=== PATIENT | female | born 1960 | race American Indian/Alaskan Native ===

== ENCOUNTER 2017-12-19 17:13 | Emergency (ER) | payer OTHER ==
[2017-12-19] MEDS ORDERED: Sodium Chloride 0.9% 10 ML Syringe FLUSH PRN (17:18)
[2017-12-19] MEDS ORDERED: Nitroglycerin 0.4 MG Tab.SL SL PRN (17:26)
[2017-12-19 18:04] LABS: CHLORIDE,CL 103 mmol/L (101-111); SODIUM,NA 136 mmol/L (135-145)
--- NOTE | 2017-12-19 19:20 | EDM.PDOC ---
Scribed by Kell Muhammad 12/19/171918 for Pierce Fontanez MD <Pierce Fontanez - Last Filed: 12/19/17 19:19> ED HPI GENERAL MEDICAL PROBLEM - General Chief Complaint: Chest Pain Stated Complaint: BY AMBULANCE Time Seen by Provider: 12/19/17 17:16 Source of Information: Reports: Patient, EMS, EMS Notes Reviewed, RN, RN Notes Reviewed History Limitations: Reports: No Limitations - History of Present Illness INITIAL COMMENTS - FREE TEXT/NARRATIVE: Patient arrives from [facility] by ambulance with complaint of chest pain x1 hour. She has been having some similar symptoms for the past couple of weeks and has been referred for cardiac cath on Tuesday. Patient received aspirin 324mg from the clinic and nitro 0.4mg sublingual from the Paramedics prior to arrival. She had partial relief from the 1 nitro. She states she has minimal chest discomfort. She admits to mild shortness of breath. Denies any edema or palpitations. Onset: Today Duration: Constant Location: Reports: Chest Quality: Reports: Ache Severity: Moderate Improves with: Reports: None Worsens with: Reports: None Associated Symptoms: Reports: No Other Symptoms Chest Pain Score (Numeric/FACES): 5 - Related Data Allergies Allergy/AdvReac Type Severity Reaction Status Date / Time lisinopril Allergy Mild Cough Verified 12/19/17 20:49 Home Meds: Home Meds Albuterol [Proventil HFA] 2 puff IH Q6HR PRN 11/29/17 [History] Amitriptyline [Elavil] 50 mg PO BEDTIME 11/29/17 [History] Hydrochlorothiazide [Hydrochlorothiazide] 25 mg PO DAILY 11/29/17 [History] Losartan [Cozaar] 100 mg PO DAILY 11/29/17 [History] Oxybutynin Chloride [Ditropan Xl] 10 mg PO DAILY 11/29/17 [History] Sennosides/Docusate Sodium [Senna-Docusate Sodium] 2 tab PO DAILY PRN 11/29/17 [ History] Aspirin 81 mg PO DAILY 12/19/17 [History] Fluticasone Propionate [Flonase] 1 spray NASBOTH DAILY PRN 12/19/17 [History] Ibuprofen [Advil] 200 mg PO Q6H PRN 12/19/17 [History] Past Medical History HEENT History: Reports: Allergic Rhinitis Cardiovascular History: Reports: Hypertension, Other (See Below) (chest pain.) Gastrointestinal History: Reports: Chronic Constipation, GERD Genitourinary History: Reports: Urinary Incontinence Musculoskeletal History: Reports: Back Pain, Chronic, Other (See Below) ( Restless legs.Degenerative of cervical intervertebral disc.. 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 ED EXAM, GENERAL - Physical Exam Exam: See Below Exam Limited By: No Limitations General Appearance: Alert, WD/WN, No Apparent Distress Eye Exam: Bilateral Eye: Normal Inspection Nose: Normal Inspection Throat/Mouth: Normal Inspection, Normal Lips, Normal Teeth, Normal Gums, Normal Oropharynx, Normal Voice, No Airway Compromise Head: Atraumatic, Normocephalic Neck: Normal Inspection, Supple, Non-Tender, Full Range of Motion Respiratory/Chest: No Respiratory Distress, Lungs Clear, Normal Breath Sounds, No Accessory Muscle Use, Chest Non-Tender Cardiovascular: Regular Rate, Rhythm, No Edema GI/Abdominal: Normal Bowel Sounds, Soft, Non-Tender, No Distention, No Abnormal Bruit (Female) Exam: Deferred Rectal (Female) Exam: Deferred Back Exam: Normal Inspection Extremities: Normal Inspection, Normal Range of Motion, Non-Tender, Normal Capillary Refill, No Pedal Edema Neurological: Alert, Oriented, CN II-XII Intact, Normal Cognition, Normal Gait, No Motor/Sensory Deficits Psychiatric: Normal Affect, Normal Mood Skin Exam: Warm, Dry, Intact, Normal Color, No Rash EKG INTERPRETATION EKG Date: 12/19/17 Time: 17:15 Rhythm: Other (sinus bradycardia) QRS: RBBB Comparison: No Change (Compared to EKG from 4:30PM at [facility] Course - Vital Signs Last Recorded V/S: Last Vital Signs Temp 97.9 F 12/19/17 20:15 Pulse 56 L 12/19/17 22:49 Resp 18 12/19/17 19:37 BP 106/53 L 12/19/17 22:49 Pulse Ox 97 12/19/17 22:00 - Orders/Labs/Meds Orders: Active Orders 24 hr Category Date Time Status EKG 12 Lead [EKG Documentation Completion] [RC] STAT Care 12/19/17 17:19 Active EKG Documentation Completion [RC] ONETIME Care 12/19/17 21:30 Active Peripheral IV Care [RC] . DIRECTED Care 12/19/17 17:20 Active Peripheral IV Insertion Adult [OM.PC] Stat Oth 12/19/17 17:19 Ordered Labs: Laboratory Tests 12/19/17 12/19/17 12/19/17 Range/Units 17:35 17:35 17:35 WBC 11.5 H (5.0-10.0) 10^3/uL RBC 4.67 (4.2-5.4) 10^6/uL Hgb 13.6 (12.0-16.0) g/dL Hct 41.2 (37.0-47.0) % MCV 88.2 (80-100) fL MCH 29.1 (27.0-34.0) pg MCHC 33.0 (33.0-35.0) g/dL Plt Count 223 (150-450) 10^3/uL Neut % (Auto) 73.0 (42.2-75.2) % Lymph % (Auto) 19.2 L (20.5-50.1) % Keith % (Auto) 6.4 (2-8) % Eos % (Auto) 1.1 (1.0-3.0) % Baso % (Auto) 0.3 (0.0-1.0) % PT 9.3 (9.0-12.0) SEC INR 0.9 (0.9-1.2) APTT 25.6 (22.0-34.0) SEC Sodium 136 (135-145) mmol/L Potassium 3.3 L (3.6-5.0) mmol/L Chloride 103 (101-111) mmol/L Carbon Dioxide 24.0 (21.0-31.0) mmol/L Anion Gap 12.3 BUN 17 (7-18) mg/dL Creatinine 0.6 (0.6-1.3) mg/dL Est Cr Clr Drug Dosing 93.09 mL/min Estimated GFR (MDRD) > 60 BUN/Creatinine Ratio 28.33 Glucose 92 (74-105) mg/dL Calcium 8.8 (8.4-10.2) mg/dl Total Bilirubin 1.0 (0.2-1.0) mg/dL AST 21 (10-42) IU/L ALT 20 (10-60) IU/L Alkaline Phosphatase 107 (42-121) IU/L Troponin I < 0.02 (0.00-0.02) ng/ml B-Natriuretic Peptide 72 (0-100) pg/ml Total Protein 7.0 (6.7-8.2) g/dl Albumin 3.9 (3.2-5.5) g/dl Globulin 3.1 Albumin/Globulin Ratio 1.26 03/12/18 Range/Units 22:04 WBC (5.0-10.0) 10^3/uL RBC (4.2-5.4) 10^6/uL Hgb (12.0-16.0) g/dL Hct (37.0-47.0) % MCV (80-100) fL MCH (27.0-34.0) pg MCHC (33.0-35.0) g/dL Plt Count (150-450) 10^3/uL Neut % (Auto) (42.2-75.2) % Lymph % (Auto) (20.5-50.1) % Keith % (Auto) (2-8) % Eos % (Auto) (1.0-3.0) % Baso % (Auto) (0.0-1.0) % PT (9.0-12.0) SEC INR (0.9-1.2) APTT (22.0-34.0) SEC Sodium (135-145) mmol/L Potassium (3.6-5.0) mmol/L Chloride (101-111) mmol/L Carbon Dioxide (21.0-31.0) mmol/L Anion Gap BUN (7-18) mg/dL Creatinine (0.6-1.3) mg/dL Est Cr Clr Drug Dosing mL/min Estimated GFR (MDRD) BUN/Creatinine Ratio Glucose (74-105) mg/dL Calcium (8.4-10.2) mg/dl Total Bilirubin (0.2-1.0) mg/dL AST (10-42) IU/L ALT (10-60) IU/L Alkaline Phosphatase (42-121) IU/L Troponin I < 0.02 (0.00-0.02) ng/ml B-Natriuretic Peptide (0-100) pg/ml Total Protein (6.7-8.2) g/dl Albumin (3.2-5.5) g/dl Globulin Albumin/Globulin Ratio Meds: Medications Discontinued Medications Generic Name Dose Route Start Last Admin Trade Name Freq PRN Reason Stop Dose Admin Nitroglycerin 0.4 mg 12/19/17 17:26 Nitrostat SL Q5M PRN Chest Pain Sodium Chloride 10 ml 12/19/17 17:18 Saline Flush FLUSH ASDIRECTED PRN Keep Vein Open - Radiology Interpretation Free Text/Narrative:: Chest x-ray: No acute findings. See rad report. - Re-Assessments/Exams Free Text/Narrative Re-Assessment/Exam: 12/19/17 18:34 Patient's initial enzymes negative and EKG with no acute ischemic changes. Patient will be moved to medical floor for repeat EKG and troponin at 2130 hours and care of patient transferred to Kriss Colvin at 1900 hour shift change. Departure - Departure Disposition: Home, Self-Care 01 Clinical Impression: Nonspecific chest pain Instructions: Nonspecific Chest Pain, [id number], Angina Pectoris, Easy-to- Read Referrals: PCP,Unobtain [Primary Care Provider] - Forms: ED Department Discharge Additional Instructions: Return to the ER with any worsening or further problems Follow up with your primary care facility <Kriss Colvin - Last Filed: 12/20/17 02:16> EKG INTERPRETATION EKG Interpretation Comments: No change in repeat EKG done at 2013 on 12/19/17 Course - Re-Assessments/Exams Free Text/Narrative Re-Assessment/Exam: 12/20/17 02:16 Care for the patient taken over from Dr. Fontanez. Recheck troponin negative and repeat EKG has no changes from previous EKG. Departure - Departure Time of Disposition: 22:38 Condition: Fair I have read and agree with the documentation that has been completed regarding this visit. By signing this record, I attest that the documentation was completed in my physical presence and is an accurate record of the encounter.
--- NOTE | 2017-12-21 09:27 | EKG ---
12/19/2017- JESSICA RAMON - TIME: 8:14 p.m. EKG per my reading shows sinus rhythm with right bundle branch block. [facility] /[id number]
--- NOTE | 2017-12-21 09:33 | EKG ---
12/19/2017- JESSICA RAMON - TIME: 05:15. EKG per my reading shows sinus rhythm at the rate of 50s with right bundle branch block. [facility] /[id number]
== END 2017-12-19 23:15 | disposition home or self-care (01) ==
LOC: EDBD → EDUNIT# → DL.ED 17:13
DX: R07.89 Other chest pain (principal); I10 Essential (primary) hypertension; F17.200 Nicotine dependence, unspecified, uncomplicated; Z88.8 Allergy status to other drugs, medicaments and biological substances; Z79.899 Other long term (current) drug therapy; Z79.82 Long term (current) use of aspirin
CPT/HCPCS: 36415; 71045; 80053; 83880; 84484; 85025; 85610; 85730; 93005; 99285

== ENCOUNTER 2023-10-24 05:56 | Day surgery (SDC) | payer BC, OTHER ==
[2023-10-24] MEDS ORDERED: Dextrose 5%-0.45% NaCl 1,000 ML IV SCH (06:00)
[2023-10-24] MEDS ORDERED: fentaNYL 100 MCG/2 ML SDV IV ONE ×6 (06:15→07:43)
[2023-10-24] MEDS ORDERED: fentaNYL 100 MCG/2 ML SDV ONE (06:15)
[2023-10-24] MEDS ORDERED: Midazolam 1 MG/ML 2 ML SDV IV ONE ×7 (06:15→07:42)
[2023-10-24] MEDS ORDERED: Midazolam 1 MG/ML 2 ML SDV ONE (06:15)
== END 2023-10-24 09:23 | disposition home or self-care (01) ==
LOC: DL.ENDO 05:56
PROVIDERS: ATTEND Internal Medicine Gastroenterology
DX: Z12.11 Encounter for screening for malignant neoplasm of colon (principal); K57.30 Diverticulosis of large intestine without perforation or abscess without bleeding; I10 Essential (primary) hypertension; H01.02A Squamous blepharitis right eye, upper and lower eyelids; H01.02B Squamous blepharitis left eye, upper and lower eyelids; G47.09 Other insomnia; E78.5 Hyperlipidemia, unspecified; K21.9 Gastro-esophageal reflux disease without esophagitis; Z87.891 Personal history of nicotine dependence; Z79.899 Other long term (current) drug therapy; Z88.8 Allergy status to other drugs, medicaments and biological substances
CPT/HCPCS: J2250; J3010; J7042

== ENCOUNTER 2023-12-10 05:11 | Emergency (ER) | payer BC ==
[2023-12-10] MEDS: Lidocaine 2% Viscous Solution 15 ML UD TOP ONE (05:42)
[2023-12-10] MEDS: Amoxicillin/Clavulanate K 875-125 MG Tab PO ONE (06:21)
== END 2023-12-10 06:40 | disposition home or self-care (01) ==
LOC: DL.ED 05:11
DX: K04.7 Periapical abscess without sinus (principal); M27.3 Alveolitis of jaws; I10 Essential (primary) hypertension; J44.9 Chronic obstructive pulmonary disease, unspecified; Z86.16 Personal history of COVID-19; Z88.8 Allergy status to other drugs, medicaments and biological substances; Z90.49 Acquired absence of other specified parts of digestive tract; Z79.899 Other long term (current) drug therapy
CPT/HCPCS: 41800; 99283-25; 99284; A9270-GY